=== PATIENT | female | born 1985 | race Hispanic/Latino ===

== ENCOUNTER 2017-09-10 14:32 | Inpatient (IN) | payer OTHER ==
[2017-09-10 15:32] VITALS: BMI 30.2
--- NOTE | 2017-09-10 16:15 | OBHP ---
Datetime: 09/10/2017 15:32 IP Adm Impression: , intrauterine ; No Active Labor Admit Comment, IP Provider: IUP at 35+w c/o vaginal discharge ? leaking since. No VB. +FM. She had interrcourse last night. She went to exercise (biking andf [place] class) and then felt liquid com ing out of vagina. PNC: [place] - lives in [place] and moving to [facility] PMH: denies PSH: denies NKA PSoH: deneis smoking ETOH Dugs A: IUP at 35w SROM /not in labor PLAN: admit to L_D condition explained to pt incl risks/complications. obtain records from OB doctor IV Ab/labs Pelvic Type - PN: Adequate Extremities - PN: Normal Abdomen - PN: Normal Back - PN: Normal Lungs - PN: Normal Heart - PN: Normal General - PN: Normal Presentation-Admit: Vertex FHR - Baseline A Provider: 130 Amniotic Fluid Color, Provider: Clear Membranes, Provider: Ruptured Contraction Comments Provider: none Comments, ACOG Physical Exam: ROS: Geneeral: no fatigue; no weakness HEENT: no MCKEON; no visual disturbance Resp: No SOB; no cough CV: no CP; no palpitations GI: no N/V/D : No F/U/D MS: No joint pain Pool Provider: Negative Ferning Provider: Positive Vital Signs Provider: Reviewed IP Chief Complaint: Suspected ruptured membranes NICHD Variability Prov Fetus A: Moderate 6-25bpm NICHD Accel Fetus A IP Provider: [id number] FHR Category Provider Fetus A: Category I NICHD Decel Fetus A IP Provider: None Dilatation, Provider: 0
--- NOTE | 2017-09-10 17:47 | OBDCSUM ---
Datetime: 09/10/2017 17:00 Discharged to, Provider: Other Discharge Comment, Provider: Pt's came. They spoke with Dr Colin's office in [place]. The want to sign out AMA and will go straight to . They understood conditionb, risks/complication s. Their questions were answered. They will call L_D when they arrive at the other hospital Discharge Diagnosis Prov Other: signout AMA
== END 2017-09-10 17:00 | disposition left against medical advice (07) | DRG 781 ==
LOC: H.EROB2 14:32 → H.L&D 16:02
PROVIDERS: ADMIT Obstetrics & Gynecology; ATTEND Obstetrics & Gynecology
PROC: 4A1HXCZ Monitoring of Products of Conception, Cardiac Rate, External Approach (ICD-10-PCS; principal; 2017-09-10)
DX: O26.893 Other specified pregnancy related conditions, third trimester (principal); Z3A.35 35 weeks gestation of pregnancy; N89.8 Other specified noninflammatory disorders of vagina

== ENCOUNTER 2018-07-22 16:34 | Emergency (ER) | payer MEDICARE, OTHER ==
[2018-07-22 16:45] VITALS: TEMP 97.8; BMI 23.0
--- NOTE | 2018-07-22 18:53 | ED PDOC ---
HPI: Abdomen Time Seen by Provider: 07/22/18 18:13 Chief Complaint (Nursing): Abdominal Pain Chief Complaint (Provider): Abdominal Pain History Per: Patient History/Exam Limitations: no limitations Onset/Duration Of Symptoms: Days (x2) Current Symptoms Are (Timing): Still Present Additional Complaint(s): 68 year old female with past history of GERD, stomach ulcers, and diverticulitis, presents to the emergency department with a complaint of abdominal pain, bloating, and constipation for 2 days. Patient additionally reports history of allergic reactions to extensive medicines and foods. Last bowel movement was yesterday morning and reports passing gas throughout the day. She also states that she has been having severe anxiety with panic attacks, in which, she took a Xanax prior to examination. Of note, she has a pending appointment with her primary doctor on 07/28/18. PCP: Dr. Jeremy Aldana Past Medical History Reviewed: Historical Data, Nursing Documentation, Vital Signs Vital Signs: Last Vital Signs Temp 97.8 F 07/22/18 16:44 Pulse 105 H 07/22/18 16:44 Resp 16 07/22/18 16:44 BP 159/86 H 07/22/18 16:44 Pulse Ox 99 07/22/18 16:44 - Medical History PMH: Diverticulitis, GERD - Family History Family History: States: Unknown Family Hx - Allergies Allergies/Adverse Reactions: Allergies Allergy/AdvReac Type Severity Reaction Status Date / Time prednisone Allergy RASH Verified 07/22/18 16:48 Review of Systems ROS Statement: Except As Marked, All Systems Reviewed And Found Negative Gastrointestinal: Positive for: Abdominal Pain (with bloating), Constipation Psych: Positive for: Anxiety Physical Exam - Reviewed Nursing Documentation Reviewed: Yes Vital Signs Reviewed: Yes - Physical Exam Appears: Positive for: Non-toxic, No Acute Distress Head Exam: Positive for: ATRAUMATIC, NORMAL INSPECTION, NORMOCEPHALIC Skin: Positive for: Normal Color Eye Exam: Positive for: Normal appearance ENT: Positive for: Normal ENT Inspection Neck: Positive for: Normal Cardiovascular/Chest: Positive for: Regular Rate, Rhythm Respiratory: Positive for: Normal Breath Sounds. Negative for: Respiratory Distress Gastrointestinal/Abdominal: Positive for: Soft, Distended (mildly). Negative for: Tenderness Back: Positive for: Normal Inspection Extremity: Positive for: Normal ROM (upper/lower) Neurologic/Psych: Positive for: Alert, Oriented. Negative for: Motor/Sensory Deficits - Laboratory Results Result Diagrams: 07/22/18 19:19 - ECG O2 Sat by Pulse Oximetry: 99 (RA) Pulse Ox Interpretation: Normal Medical Decision Making Medical Decision Making: Time: 1625 Initial Plan: * CT ABD/pelvis without PO or IV contrast * Labs with UA Time: 1900 --Patient is signed out to Dr. Faye, pending imaging and lab results then re- evaluation. Scribe Attestation: Documented by Dilia Timmons, acting as a scribe for Nievse Figueroa MD. Provider Scribe Attestation: All medical record entries made by the Scribe were at my direction and personally dictated by me. I have reviewed the chart and agree that the record accurately reflects my personal performance of the history, physical exam, medical decision making, and the department course for this patient. I have also personally directed, reviewed, and agree with the discharge instructions and disposition. Disposition - Disposition Forms: [employer] (Danish)
[2018-07-22 19:27] LABS: BASO # 0.1 K/uL (0.0-0.2); EOS # 0.1 K/uL (0.0-0.7); EOS % 1.1 % (0.0-4.0); HEMOGLOBIN 13.2 g/dL (12.0-16.0); LYMPH # 1.6 K/uL (1.0-4.3); LYMPH % 16.9 % (20.0-40.0); MEAN CELL VOLUME 95.4 fl (81.0-99.0); MEAN CORPUSCULAR HEMOGLOBIN 32.1 pg (27.0-31.0); MEAN CORPUSCULAR HGB CONC 33.6 g/dL (33.0-37.0); MEAN PLATELET VOLUME 9.3 fl (7.2-11.7); MONO # 0.8 K/uL (0.0-0.8); MONO % 8.5 % (0.0-10.0); NEUT # 6.7 K/uL (1.8-7.0); NEUT % 72.5 % (50.0-75.0); RBC 4.12 Mil/uL (3.80-5.20); WHITE BLOOD COUNT 9.2 K/uL (4.8-10.8)
--- NOTE | 2018-07-22 19:27 | ED PDOC ---
- Laboratory Results Result Diagrams: 07/22/18 19:19 07/22/18 19:19 - ECG O2 Sat by Pulse Oximetry: 99 Medical Decision Making Medical Decision Making: Time: 1899 --Patient is endorsed to provider by Dr. Figueroa, pending lab and imaging results then re-evaluation. Time: 1930 --CT ABD/pelvis FINDINGS: LUNG BASES: The lung bases appear clear. No pleural effusions are seen. LIVER: A 1.3 cm subtle hypodense zone is seen in the postero-lateral lower right hepatic lobe. This may represent a hemangioma. Consideration could be given to correlation with hepatic ultrasound evaluation. GALLBLADDER AND BILE DUCTS: Status post cholecystectomy. No biliary ductal dilatation is evident. PANCREAS: Unremarkable. SPLEEN: Unremarkable. ADRENAL GLANDS: Unremarkable. KIDNEYS, URETERS, AND BLADDER: Both kidneys are normal in size and location. An approximately 3.7 x 4.7 cm circumscribed mass arises from the inferior right renal cortex. This measures 20.2 HU in density and may represent a hyperdense cyst. Correlation with renal ultrasonography could be considered for further characterization. There is no hydronephrosis or hydroureter. No urinary calculi are seen. The urinary bladder is normal in size and configuration. STOMACH AND BOWEL: Unremarkable appearance of the stomach and bowel. No evidence of bowel obstruction. No evidence suggesting enteritis or colitis. APPENDIX: No evidence of acute appendicitis on CT examination. PERITONEUM: No free fluid. No free air. LYMPH NODES: No lymphadenopathy is evident. REPRODUCTIVE: Unremarkable as visualized. VASCULATURE: No evidence of abdominal aortic aneurysm. Extensive atherosclerotic vascular plaquing is present. BONES: No aggressive appearing osseous lesion. No acute osseous pathology evident. SOFT TISSUES: Incidental discovery is made of a 1.8 x 2.7 cm subtle zone of decreased attenuation in the right gluteus kris muscle. This area measures 15.9 HU in density. The possibility of intramuscular abscess should be considered. No associated subcutaneous gas bubbles are identified. IMPRESSION: 1. No acute intra-abdominal or pelvic abnormality. 2. Possible 1.3 cm hemangioma in the posterolateral lower right hepatic lobe. Correlation with hepatic ultrasound evaluation could be considered. 3. Status post cholecystectomy. 4. 4.7 cm circumscribed mass arising from the lower right renal pole. This may represent a hyperdense cyst. Consideration could be given to correlation with renal ultrasound evaluation for further characterization. 5. Extensive atherosclerotic vascular plaquing. Time: 2126 --Labs reviewed: (-) significant clinical abnormality. Incidental finding from CT scan was discussed with patient. She denies any gluteal pain, redness, or swelling. Upon provider reevaluation, patient is medically stable, reports feeling better, and requires no further treatment in the ED at this time. Nydia ent will be discharged home and advised to follow up with primary doctor. Counseling was provided and all questions were answered regarding diagnosis. There is agreement to discharge plan. Return if symptoms persist or worsen. Clinical Impression: Gastritis -- Scribe Attestation: Documented by Dilia Timmons, acting as a scribe for Hammad Faye MD. Provider Scribe Attestation: All medical record entries made by the Scribe were at my direction and personally dictated by me. I have reviewed the chart and agree that the record accurately reflects my personal performance of the history, physical exam, medical decision making, and the department course for this patient. I have also personally directed, reviewed, and agree with the discharge instructions and disposition. Disposition - Clinical Impression Clinical Impression: Gastritis - POA Present On Arrival: None - Disposition Disposition: Routine/Home Disposition Time: 21:27 Condition: IMPROVED Prescriptions: Dicyclomine [Bentyl] 20 mg PO Q12 PRN #20 tab PRN Reason: abdominal pain/bloating Esomeprazole Magnesium [Nexium] 20 mg PO QAM #10 ecc Instructions: Gastritis Forms: [employer] (Brazilian)
[2018-07-22 19:48] LABS: ALB/GLOB RATIO 1.4 (1.0-2.1); ALBUMIN 4.4 g/dL (3.5-5.0); ALT/SGPT 23 U/L (9-52); AST/SGOT 20 U/L (14-36); BLOOD UREA NITROGEN 8 mg/dl (7-17); CALCIUM 9.6 mg/dL (8.4-10.2); GFR NON-AFRICAN AMERICAN > 60; LIPASE 54 U/L (23-300)
[2018-07-22 22:53] VITALS: BP 145/82; PULSE 88; RESP 20; O2SAT 100
--- NOTE | 2018-07-23 13:24 | CT ---
Date of service: 07/22/2018 PROCEDURE: CT Abdomen and Pelvis without intravenous contrast HISTORY: abd pain and distension COMPARISON: None. TECHNIQUE: Technique. Contrast dose: None Radiation dose: Total exam DLP = 272 mGy-cm. This CT exam was performed using one or more of the following dose reduction techniques: Automated exposure control, adjustment of the mA and/or kV according to patient size, and/or use of iterative reconstruction technique. FINDINGS: LOWER THORAX: Unremarkable. LIVER: A 12 x 9 mm oval hypodensity in the posterolateral right hepatic lobe is noted. Hemangioma and/or cysts are some considerations. Consider ultrasound to further evaluate No gross ductal dilatation. GALLBLADDER AND BILE DUCTS: Status post cholecystectomy clips here present. The extrahepatic bile ducts are prominent not uncommon finding given patient's status. Measurements were approximately 10 mm. No stone in the extrahepatic bile ducts noted. No obstructing mass seen. Follow-up advised. And/or comparison with earlier CT studies to assess stability of this. Evaluation the pancreas limited without IV contrast. PANCREAS: . No gross lesion or ductal dilatation on this limited noncontrast study.. SPLEEN: Unremarkable. ADRENALS: The approximately 12 mm left adrenal hypodense nodules compatible with the benign adenoma. Thin punctate calcifications of a few right adrenal gland limbs noted-compatible with prior infection inflammation and/or prior trauma. No right adrenal mass is noted. KIDNEYS AND URETERS: Large exophytic hypodense mass measuring 4.7 x 3.3 by 4.3 cm in size most of its Hounsfield units are less than 20. Renal ultrasound for characterization confirmation of a simple cyst is suggested.. No hydronephrosis. No suspicious renal masses noncontrast study.. VASCULATURE: . No aortic aneurysm. There is presence of aortic atherosclerotic calcification and mural plaque on cross sectional studies. BOWEL: Unremarkable. No obstruction. No gross mural thickening. APPENDIX: Unremarkable. Normal appendix. PERITONEUM: Unremarkable. No free fluid. No free air. LYMPH NODES: Unremarkable. No enlarged lymph nodes. BLADDER: Mild-Moderately distended but otherwise unremarkable. REPRODUCTIVE: Unremarkable. BONES: No acute fracture. Minimal thoraco lumbar spondylosis. OTHER FINDINGS: Region of the right gluteus muscle bundle between the right gluteus kris muscle bundle planes a 2.4 by 1.7 by 2.6 cm hypodense "mass" is seen. Most its Hounsfield units are either less than 20 and/or up to 30. The mass appears fairly well-defined. Its etiology is uncertain. MRI of the right hip attention to the right gluteal muscle bundles is advised without with gadolinium enhancement. IMPRESSION: 4 to 5 cm exophytic right lower renal pole mass who has Hounsfield units are mostly paralleling that of a cyst. However given some of it is borderline hyperdense measurements, a renal ultrasound to determine if this is a simple cyst is advised. Partial volume averaging effects an elevated Hounsfield units. Right gluteal kris and/or right gluteal kris-minimus inter muscular hypodense mass etiology indeterminate.MRI of the right hip/pelvis-attention to the right gluteal muscle bundles is advised without with gadolinium enhancement. Indeterminate right hepatic lobe posterolateral oval hypodensity paty angioma is 1 consideration. A minimally complicated cyst is another. Consider an abdominal ultrasound Atherosclerotic vascular calcifications present. Status post cholecystectomy with possible top-normal postop extrahepatic bile duct prominence.-findings discussed above Likely benign changes in each adrenal gland. This was not mentioned on the prior preliminary [place] [facility] report is the findings were, for the most part mentioned
== END 2018-07-22 21:13 | disposition home or self-care (01) ==
LOC: H.ER 16:34
DX: K29.70 Gastritis, unspecified, without bleeding (principal); Z90.49 Acquired absence of other specified parts of digestive tract